=== PATIENT | female | born 1990 | race Caucasian/White ===

== ENCOUNTER 2016-08-14 16:19 | Emergency (ER) | payer SELFPAY ==
[2016-08-14] MEDS ORDERED: KETOROLAC 60 MG/2 ML VIAL IM STA (18:27)
[2016-08-14] MEDS ORDERED: ONDANSETRON 4 MG/2 ML VIAL IM STA (18:27)
--- NOTE | 2016-08-14 18:31 | ED ---
Headache HPI - General Chief Complaint: Headache Stated Complaint: MIGRAINE Time Seen by Provider: 08/14/16 18:10 Source: RN notes reviewed Mode of arrival: ambulatory Limitations: no limitations - History of Present Illness Initial Comments: Patient is a 26-year-old female presents emergency room for evaluation of migraine headache. Patient states she has a history of migraine headaches. Patient states usually gets a migraine headache every few months. Patient states this feels like her normal migraine headaches. Patient states it started at 6 AM and will not subside. Patient denies taking any medications today. Patient states that she is having an 8 out of 10 constant headache right above her left eye. Patient denies changes in vision. Patient denies changes in hearing, ringing in ears or ear pain. Patient denies any nausea or vomiting. Patient denies neck pain or fevers. Patient does admit to photophobia. Patient denies phonophobia. Patient denies numbness or tingling in her fingers or toes. Patient states she is usually given Toradol and Zofran which helps her migraines. Patient denies any other symptoms or complaints at this time. - Related Data Home Medications Medication Instructions Recorded Confirmed No Known Home Medications [No 04/27/16 08/14/16 Known Home Medications] Allergies Allergy/AdvReac Type Severity Reaction Status Date / Time sulfamethoxazole Allergy Rash/Hives Verified 08/14/16 18:25 [From Bactrim] trimethoprim [From Bactrim] Allergy Rash/Hives Verified 08/14/16 18:25 Review of Systems ROS Statement: Those systems with pertinent positive or pertinent negative responses have been documented in the HPI. ROS Other: All systems not noted in ROS Statement are negative. 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 Limitations: no limitations General appearance: alert, in no apparent distress Head exam: Present: atraumatic, normocephalic, normal inspection Eye exam: Present: normal appearance ENT exam: Present: normal exam Neck exam: Present: normal inspection Respiratory exam: Present: normal lung sounds bilaterally. Absent: respiratory distress Cardiovascular Exam: Present: regular rate, normal rhythm, normal heart sounds Extremities exam: Present: normal inspection, normal capillary refill Back exam: Present: normal inspection Neurological exam: Present: alert, oriented X3, CN II-XII intact, normal gait Expanded Patient oriented to: Present: person, place, time Speech: Present: fluid speech Cranial nerves: EOM's Intact: Normal, Facial Sensation: Normal Sensory exam: Upper Extremity Light Touch: Normal, Lower Extremity Light Touch: Normal Motor strength exam: RUE: 5, LUE: 5, RLE: 5, LLE: 5 Eye Response: (4) open spontaneously Motor Response: (6) obeys commands Verbal Response: (5) oriented Psychiatric exam: Present: normal affect, normal mood Skin exam: Present: warm, dry, intact, normal color. Absent: rash Course Vital Signs 08/14/16 08/14/16 16:43 19:08 Temperature 98.9 F 97.8 F Pulse Rate 77 78 Respiratory 18 20 Rate Blood Pressure 123/58 126/68 O2 Sat by Pulse 98 98 Oximetry Medical Decision Making - Medical Decision Making Patient is a 26-year-old female presents to emergency room for evaluation of migraine headache. Patient was given Toradol and Zofran states she is feeling much better like to be discharged home. Patient has no neuro deficits. Advised patient to follow-up with her primary care provider next week. Patient states she understands everything was discussed with her. Return parameters discussed. Disposition Clinical Impression: Acute headache Disposition: HOME SELF-CARE Condition: Good Instructions: Acute Headache (ED) Additional Instructions: Drink plenty of water. Take Tylenol or Motrin as needed for headache. Please follow up with primary care provider in 1-2 days. If any new symptom arises, symptoms worsen or fever develops return to ER as soon as possible. Referrals: None,Stated [Primary Care Provider] - 1-2 days Time of Disposition: 19:01
[2016-08-14 19:09] VITALS: BP 126/68; PULSE 78; RESP 20; TEMP 97.8
== END 2016-08-14 19:09 | disposition home or self-care (01) ==
LOC: EC 16:19
DX: R51 Headache (principal); Z88.2 Allergy status to sulfonamides; Z88.1 Allergy status to other antibiotic agents
CPT/HCPCS: 96372 ×2; 99283; J2405; J1885